=== PATIENT | female | born 2000 | race Caucasian/White ===

== ENCOUNTER 2024-09-18 20:05 | Emergency (ER) | payer BC ==
[~2024-09-18] VITALS: Ht 162.6 cm; Wt 68.8 kg
[2024-09-18 20:07] VITALS: BP 138/66; TEMP 98.1; O2SAT 100
[2024-09-18] MEDS ORDERED: ERGO500029 PO (20:18)
== END 2024-09-18 22:21 | disposition home or self-care (01) ==
LOC: M ED 20:05
DX: S00.93XA Contusion of unspecified part of head, initial encounter (principal); Y92.9 Unspecified place or not applicable; Y93.9 Activity, unspecified; Y99.0 Civilian activity done for income or pay; W22.8XXA Striking against or struck by other objects, initial encounter